=== PATIENT | female | born 1990 | race Caucasian/White ===

== ENCOUNTER 2016-12-14 18:40 | Inpatient (IN) | payer OTHER ==
[~2016-12-14] VITALS: Ht 160 cm; Wt 79.4 kg
[2016-12-14] MEDS: LACTATED RINGER'S 1000 ML IV SCH (19:20)
[2016-12-14 19:52] LABS: AUTOMATED NEUTROPHIL # 5.6 TH/MM3 (1.8-7.7); BASOPHIL % 0.2 % (0.0-2.0); EOSINOPHIL % 0.4 % (0.0-4.0); HEMATOCRIT 40.8 % (35.0-46.0); HEMO FLAGS DIFF FINAL; LYMPH % 19.9 % (9.0-44.0); LYMPHOCYTE # 1.5 TH/MM3 (1.0-4.8); MEAN CELL VOLUME 88.5 FL (80.0-100.0); MEAN CORPUSCULAR HEMOGLOBIN 31.2 PG (27.0-34.0); MEAN CORPUSCULAR HGB CONC 35.3 % (32.0-36.0); MONO % 6.5 % (0.0-8.0); PLATELET COUNT 209 TH/MM3 (150-450); RED BLOOD COUNT 4.61 MIL/MM3 (4.00-5.30); RED CELL DISTRIBUTION WIDTH 13.1 % (11.6-17.2); WHITE BLOOD COUNT 7.7 TH/MM3 (4.0-11.0)
[2016-12-14] MEDS ORDERED: DINOPROSTONE 10 MG INSERT-LEAVE FOR 12 HOURS VAGINAL ONE (20:00)
[2016-12-14 20:14] VITALS: RESP 18
[2016-12-14] MEDS ORDERED: OXYTOCIN 30 UNITS 500ML PREMIX IV ONE (20:15)
[2016-12-14] MEDS ORDERED: LIDOCAINE HCL 1% 50 ML VIAL INFIL PRN (20:15)
[2016-12-14] MEDS ORDERED: MINERAL OIL 10 ML VIAL TOP PRN (20:15)
[2016-12-14 20:24] LABS: BACTERIA, URINE RARE /hpf; BLOOD, URINE NEG (NEG); COMMENT (UR) CULT NOT INDICATED; CULTURE IF INDICATED CULT NOT INDICATED; GLUCOSE,URINE 300 mg/dL (NEG); KETONE, URINE NEG (NEG); MUCUS URINE FEW /lpf (OCC); NITRITE,URINE NEG (NEG); PH, URINE 6.5 (5.0-8.5); SQUAMOUS EPITHELIAL CELL URINE <1 /hpf (0-5); URINE COLOR LIGHT-YELLOW (YELLW/STRAW)
[2016-12-14] MEDS ORDERED: NS 500 ML BOLUS IV PRN (20:30)
[2016-12-14] MEDS ORDERED: LIDOCAINE HCL 1% 50 ML VIAL I-DERMAL PRN (20:30)
[2016-12-14] MEDS ORDERED: CITRIC ACID-SODIUM CITRATE LIQ 30 ML UDC PO SCH (20:30)
[2016-12-14] MEDS ORDERED: NS 1000 ML IV PRN (20:30)
[2016-12-14] MEDS ORDERED: LACTATED RINGER'S 1000 ML BOLUS IV PRN (20:30)
[2016-12-14] MEDS ORDERED: PREN1CAP28 PO (20:54)
[2016-12-14] MEDS ORDERED: ZOLPIDEM TARTRATE 10 MG TAB PO PRN (21:00)
[2016-12-14 21:06] VITALS: RESP 18
[2016-12-14 22:13] VITALS: BP 135/70; PULSE 75
[2016-12-14 22:15] VITALS: RESP 18; TEMP 98
[2016-12-14 23:15] VITALS: RESP 20
[2016-12-14 23:45] VITALS: RESP 18
[2016-12-15] VITALS (34 sets, daily range): BP systolic 98–124; BP diastolic 45–74; PULSE 66–91; RESP 16–20; TEMP 97.8–98.1
[2016-12-15] MEDS: LACTATED RINGER'S 1000 ML IV SCH ×3 (04:30→12:47)
[2016-12-15] MEDS: ONDANSETRON HCL 4 MG/2 ML VIAL IV PRN (05:30)
[2016-12-15] MEDS ORDERED: OXYTOCIN 30 UNITS-500ML PREMIX 500 ML IV SCH (07:00)
--- NOTE | 2016-12-15 10:06 | MH ---
cc: NICOLE ALTMAN MD DATE OF ADMISSION: 12/14/2016 HISTORY OF PRESENT ILLNESS She is [id number], 1, para 0, intrauterine at 39 weeks and 3 days. care has been with [facility]. She was a late transfer at 33 weeks, uneventful. Group-B strep negative. She is being induced because her is in the and has to return in December. PAST OB HISTORY She is 1. PAST [employer] [employer] HISTORY She has had breast augmentation surgery in 2013. History of an abnormal Pap smear. ASCUS was negative HPV on her Pap smear in September 2015. PAST MEDICAL HISTORY She denies hypertension, diabetes or asthma. PAST SURGICAL HISTORY Significant for the breast augmentation. SOCIAL HISTORY She denies toxic habits. MEDICATIONS She takes vitamins. ALLERGIES Has no known drug allergies. PHYSICAL EXAMINATION VITAL SIGNS: Stable. She is afebrile. Blood pressure is 124/62. She is 164 pounds. HEAD, HEART, CHEST AND LUNGS: Within normal limits. ABDOMEN: Soft, nontender, gravid. : On vaginal exam cervix is closed, soft, midposition. ASSESSMENT AND PLAN She is [id number], 1, para 0, intrauterine at 39 and 3/7 weeks, for admission and Cervidil cervical ripening. Group-B strep negative. The patient was counseled about induction. Her is in the and has to return to work in December. MD JENNIFER Telles/DAYSI /3:23 PM /10:06 AM
[2016-12-15] MEDS ORDERED: DINOPROSTONE 10 MG VAG INSERT VAGINAL ONE (18:00)
[2016-12-16] VITALS (50 sets, daily range): BP systolic 88–131; BP diastolic 48–92; PULSE 66–93; RESP 16–22; TEMP 97–98.6; O2SAT 98–100
--- NOTE | 2016-12-16 08:50 | PD.LABORPN ---
Subjective Subjective s/p cervidil x2 Objective Vital Signs Vital Signs Date Time Temp Pulse Resp B/P Pulse Ox O2 Delivery O2 Flow Rate FiO2 12/16/16 05:17 83 120/63 12/16/16 05:16 16 12/16/16 05:16 98.0 12/16/16 01:16 77 109/49 12/16/16 01:00 16 12/16/16 01:00 98.2 Objective Pelvic Exam: Cervix: [-] Dilatation: [-] 2 Effacement: [-] 50 Station: [-] -2 Presentation: [-] vtx Membranes: [intact or ruptured] arom clear Uterine Contractions: [-] occas FHT's: Category: [-] 1 Baseline: [-] Reactive: [-] R Variability: [-] Decels: [-] Assessment/Plan Problem List: (1) state, incidental Assessment and Plan IUP at term s/p cervidil- pit- cervidil, AROM clear restart pit, analgesia prn, anticipate Nena Bustos MD Dec 16, 2016 08:50
[2016-12-16] MEDS ORDERED: OXYTOCIN 30 UNITS-500ML PREMIX 500 ML ONE ×2 (08:51→22:15)
[2016-12-16] MEDS ORDERED: OXYTOCIN 30 UNITS-500ML PREMIX 500 ML IV SCH (09:00)
[2016-12-16] MEDS: ONDANSETRON HCL 4 MG/2 ML VIAL IV PRN (11:37)
[2016-12-16] MEDS ORDERED: fentaNYL 2MCG-BUPIV 0.125% INJ 100 ML ONE (16:20)
[2016-12-16] MEDS ORDERED: ePHEDrine/NS 25 MG/5 ML SYR ONE (16:21)
[2016-12-16] MEDS ORDERED: NO SYSTEM NARCOTICS XX PRN (17:45)
[2016-12-16] MEDS ORDERED: ePHEDrine/NS 25 MG/5 ML SYR IV PRN (17:45)
[2016-12-16] MEDS ORDERED: fentaNYL 2MCG-BUPIV 0.125% 100 ML EPIDURAL SCH (17:45)
[2016-12-16] MEDS ORDERED: DO NOT ADMINISTER ANTICOAGULANTS XX PRN (17:45)
[2016-12-16] MEDS ORDERED: ceFAZolin INJ 1,000 MG VIAL ONE ×2 (20:13→20:35)
[2016-12-16] MEDS ORDERED: OXYTOCIN 10 UNIT/ML AMP ONE (20:14)
[2016-12-16] MEDS ORDERED: DICLOFENAC SODIUM 37.5 MG/ML VIAL IV PUSH ONE (20:35)
[2016-12-16] MEDS ORDERED: ACETAMINOPHEN 1000 MG/100 ML VIAL IV ONE (21:15)
[2016-12-16] MEDS ORDERED: OXYTOCIN 30 UNITS-500ML PREMIX 500 ML IV ONE (21:15)
[2016-12-16] MEDS ORDERED: ONDANSETRON HCL 4 MG/2 ML VIAL IV PUSH PRN (21:15)
[2016-12-16] MEDS ORDERED: SODIUM CHLORIDE 0.9% FLUSH 10 ML FLUSH IV FLUSH PRN (21:15)
[2016-12-16] MEDS ORDERED: ZOLPIDEM TARTRATE 5 MG TAB PO PRN (21:15)
[2016-12-16] MEDS ORDERED: ACETAMINOPHEN 325 MG TAB PO PRN (21:15)
[2016-12-16] MEDS ORDERED: SIMETHICONE 80 MG CHEWABLE TAB PO PRN (21:15)
[2016-12-16] MEDS ORDERED: ONDANSETRON HCL 4 MG/2 ML VIAL ONE (21:25)
[2016-12-16] MEDS ORDERED: MORPHINE SULFATE PF 5 MG/10 ML VIAL ONE (21:25)
[2016-12-16] MEDS ORDERED: LIDOCAINE HCL 2% 20 ML VIAL NB ONE (22:01)
[2016-12-16] MEDS ORDERED: SODIUM BICARBONATE 8.4% INJ 50 MEQ/50 ML SYR IV ONE (22:01)
[2016-12-16] MEDS ORDERED: LACTATED RINGER'S 1000 ML INJ 1,000 ML IV ONE (22:01)
[2016-12-16] MEDS ORDERED: SODIUM CHLORIDE 0.9% FLUSH 5 ML FLUSH ONE (22:41)
[2016-12-16] MEDS ORDERED: DEXAMETHASONE SOD PHOS 4 MG/ML VIAL IV ONE (23:00)
[2016-12-16] MEDS ORDERED: EPIDURAL-NALOXONE HCL 0.4 MG/ML AMP IV PRN (23:45)
[2016-12-16] MEDS ORDERED: EPIDURAL-NO SYSTEMIC NARCOTICS XX PRN (23:45)
[2016-12-16] MEDS ORDERED: EPIDURAL-DIPHENHYDRAMINE HCL 50 MG/ML VIAL IV PUSH PRN (23:45)
[2016-12-16] MEDS ORDERED: EPIDURAL-DIPHENHYDRAMINE HCL 50 MG CAP PO PRN (23:45)
[2016-12-16] MEDS ORDERED: EPIDURAL-DO NOT ADMINISTER ANTICOAGULANTS XX PRN (23:45)
[2016-12-17 00:20] VITALS: BP 98/51; PULSE 74; RESP 18; RESP 22; TEMP 97.8
[2016-12-17] MEDS ORDERED: LACTATED RINGER'S 1000 ML INJ 1,000 ML IV SCH (02:14)
[2016-12-17 04:11] VITALS: BP 108/62; PULSE 70; RESP 16; TEMP 98.4
[2016-12-17 05:47] LABS: AUTOMATED NEUTROPHIL # 15.6 TH/MM3 (1.8-7.7); BASOPHIL % 0.1 % (0.0-2.0); HEMATOCRIT 34.2 % (35.0-46.0); HEMO FLAGS DIFF FINAL; LYMPH % 3.8 % (9.0-44.0); LYMPHOCYTE # 0.6 TH/MM3 (1.0-4.8); MEAN CELL VOLUME 88.9 FL (80.0-100.0); MEAN CORPUSCULAR HEMOGLOBIN 30.6 PG (27.0-34.0); MEAN CORPUSCULAR HGB CONC 34.4 % (32.0-36.0); MONO % 3.2 % (0.0-8.0); NEUT % 92.9 % (16.0-70.0); PLATELET COUNT 172 TH/MM3 (150-450); RED BLOOD COUNT 3.85 MIL/MM3 (4.00-5.30); RED CELL DISTRIBUTION WIDTH 13.8 % (11.6-17.2); WHITE BLOOD COUNT 16.8 TH/MM3 (4.0-11.0)
[2016-12-17] MEDS ORDERED: OXYTOCIN 30 UNITS-500ML PREMIX 500 ML IV PRN (07:15)
[2016-12-17 07:50] VITALS: BP 104/68; PULSE 72
[2016-12-17] MEDS ORDERED: SODIUM CHLORIDE 0.9% FLUSH 10 ML FLUSH IV FLUSH SCH (09:00)
--- NOTE | 2016-12-17 09:01 | HHI.OB ---
Subjective Post Operative Day: 1 Remarks doing well 10 hours post section for failure of descent\ Aldo well no complaints Objective Vitals/I&O Vital Signs Date Time Temp Pulse Resp B/P Pulse Ox O2 Delivery O2 Flow Rate FiO2 12/17/16 07:50 72 104/68 12/17/16 04:11 70 108/62 12/17/16 04:11 98.4 16 12/17/16 00:20 18 12/17/16 00:20 97.8 74 22 98/51 12/16/16 22:50 71 16 112/72 98 12/16/16 22:50 98.6 12/16/16 22:30 74 16 110/48 99 12/16/16 22:20 69 16 112/68 99 12/16/16 22:04 104/57 12/16/16 22:04 67 16 99 12/16/16 21:49 70 16 109/66 100 12/16/16 21:35 75 18 110/65 99 12/16/16 21:20 98.2 12/16/16 21:20 80 22 108/70 99 12/16/16 20:00 71 102/56 12/16/16 19:43 98.5 18 12/16/16 19:30 78 122/68 12/16/16 19:00 79 128/82 12/16/16 18:30 82 115/66 12/16/16 18:15 17 12/16/16 18:15 82 12/16/16 18:10 82 12/16/16 18:05 70 12/16/16 18:00 68 106/64 12/16/16 18:00 77 12/16/16 17:55 68 12/16/16 17:50 73 12/16/16 17:45 71 12/16/16 17:42 17 12/16/16 17:40 68 12/16/16 17:35 74 12/16/16 17:30 70 12/16/16 17:30 76 111/64 12/16/16 17:25 79 125/67 12/16/16 17:25 74 12/16/16 17:20 71 12/16/16 17:20 76 111/62 12/16/16 17:15 74 113/66 12/16/16 17:15 77 12/16/16 17:10 73 12/16/16 17:10 74 113/67 12/16/16 17:05 74 111/68 12/16/16 17:05 76 12/16/16 17:00 98.4 18 12/16/16 17:00 80 106/56 12/16/16 17:00 82 12/16/16 16:57 90 109/57 12/16/16 16:56 91 88/74 12/16/16 16:55 85 12/16/16 16:51 93 131/92 12/16/16 16:50 80 12/16/16 16:45 80 12/16/16 15:30 74 114/72 12/16/16 15:15 17 12/16/16 15:00 72 115/60 12/16/16 14:45 98.4 12/16/16 14:41 75 117/73 12/16/16 14:41 16 12/16/16 12:45 97.0 12/16/16 12:42 66 118/69 12/16/16 11:45 18 12/16/16 11:36 81 128/74 12/16/16 09:46 75 108/63 Result Diagram: 12/17/16 0518 Objective Remarks GENERAL: Well-nourished, well-developed patient. CARDIOVASCULAR: Regular rate and rhythm without murmurs, gallops, or rubs. RESPIRATORY: Breath sounds equal bilaterally. No accessory muscle use. ABDOMEN/GI: Abdomen soft, non-tender, bowel sounds present. Incision: Clean, dry and intact. Fundus: Firm, non-tender at umbilicus. GENITOURINARY: Light to moderate bleeding. EXTREMITIES: No cyanosis or edema, non-tender, without signs of DVT. Medications and IVs Current Medications Medications (Trade) Dose Ordered Sig/Denis Route Start Time Stop Time Status Last Admin (Lr 1000 ml Inj) 1,000 ml @ 100 mls/hr Q10H IV 12/17/16 02:14 12/17/16 22:13 (NS Flush) 2 ml BID IV FLUSH 12/17/16 09:00 (NS Flush) 2 ml UNSCH PRN IV FLUSH 12/16/16 21:15 (Mylicon Chew) 80 mg QID PRN PO 12/16/16 21:15 (Tylenol) 650 mg Q6H PRN PO 12/16/16 21:15 (Motrin) 600 mg Q6H PRN PO 12/16/16 21:15 (Percocet 5-325 Mg) 1 tab Q4H PRN PO 12/16/16 21:15 (Percocet 5-325 Mg) 2 tab Q4H PRN PO 12/16/16 21:15 (Michelle-Colace) 2 tab Q12H PRN PO 12/16/16 21:15 (Ambien) 5 mg HS PRN PO 12/16/16 21:15 (M-M-R Ii Inj) 0.5 ml ONCE ONCE SQ 12/17/16 16:00 12/17/16 16:01 (Boostrix Inj) 0.5 ml ONCE ONCE IM 12/17/16 16:00 12/17/16 16:01 (Zofran Inj) 4 mg Q6H PRN IV PUSH 12/16/16 21:15 Miscellaneous Information NO SYSTEMIC NARCOTICS TO BE GIVEN FO... UNSCH PRN XX 12/16/16 23:45 12/17/16 23:44 (Narcan Inj) 0.4 mg UNSCH PRN IV 12/16/16 23:45 12/17/16 23:44 (Benadryl Inj) 25 mg Q6H PRN IV PUSH 12/16/16 23:45 12/17/16 23:44 (Benadryl) 50 mg Q6H PRN PO 12/16/16 23:45 12/17/16 23:44 Miscellaneous Information ALL NURSING DEPARTMENTS UNSCH PRN XX 12/16/16 23:45 12/17/16 23:44 Assessment/Plan Problem List: (1) state, incidental Assessment and Plan doing well on POD 1 baby for circumcision in am no issues at this time Tessa Ríos MD Dec 17, 2016 09:01
[2016-12-17] MEDS: DOCUSATE SODIUM 50 MG/SENNA 8.6 MG TAB PO PRN ×2 (09:04→23:00)
[2016-12-17] MEDS: IBUPROFEN 600 MG TAB PO PRN ×3 (09:04→21:15)
[2016-12-17] MEDS: oxyCODONE/ACETAMINOPHEN 5 MG/325 MG TAB PO PRN ×3 (09:05→21:14)
[2016-12-17 15:53] VITALS: BP 106/68; PULSE 18; RESP 18; TEMP 98.7
[2016-12-17] MEDS ORDERED: DIPHTH/TETANUS/ACEL PERTUSSIS (BOOSTER) 0.5 ML VIAL/PFS IM ONE (16:00)
[2016-12-17] MEDS ORDERED: MEASLES, MUMPS, RUBELLA VACCINE 0.5 ML VIAL SQ ONE (16:00)
[2016-12-17 21:00] VITALS: BP 116/69; PULSE 79; RESP 18; TEMP 98.6
[2016-12-18] MEDS: IBUPROFEN 600 MG TAB PO PRN ×2 (05:06→11:47)
[2016-12-18 08:00] VITALS: BP 106/78; PULSE 80; RESP 1; TEMP 98.4
[2016-12-18] MEDS: DOCUSATE SODIUM 50 MG/SENNA 8.6 MG TAB PO PRN (09:16)
[2016-12-18] MEDS: oxyCODONE/ACETAMINOPHEN 5 MG/325 MG TAB PO PRN (09:18)
--- NOTE | 2016-12-18 10:36 | HHI.OB ---
Subjective Post Operative Day: 2 Remarks Doing well has great support at home and would like discharge no complaints Objective Vitals/I&O Vital Signs Date Time Temp Pulse Resp B/P Pulse Ox O2 Delivery O2 Flow Rate FiO2 12/18/16 08:00 80 106/78 12/18/16 08:00 98.4 1 12/17/16 21:00 79 18 116/69 12/17/16 21:00 98.6 12/17/16 15:53 106/68 12/17/16 15:53 98.7 18 18 Result Diagram: 12/17/1618 Objective Remarks GENERAL: Well-nourished, well-developed patient. CARDIOVASCULAR: Regular rate and rhythm without murmurs, gallops, or rubs. RESPIRATORY: Breath sounds equal bilaterally. No accessory muscle use. ABDOMEN/GI: Abdomen soft, non-tender, bowel sounds present. Incision: Clean, dry and intact. aristides in place Fundus: Firm, non-tender at umbilicus. GENITOURINARY: Light to moderate bleeding. EXTREMITIES: No cyanosis or edema, non-tender, without signs of DVT. Medications and IVs Current Medications Medications (Trade) Dose Ordered Sig/Denis Route Start Time Stop Time Status Last Admin (NS Flush) 2 ml BID IV FLUSH 12/17/16 09:00 (NS Flush) 2 ml UNSCH PRN IV FLUSH 12/16/16 21:15 (Mylicon Chew) 80 mg QID PRN PO 12/16/16 21:15 (Tylenol) 650 mg Q6H PRN PO 12/16/16 21:15 (Motrin) 600 mg Q6H PRN PO 12/16/16 21:15 12/18/16 05:06 (Percocet 5-325 Mg) 1 tab Q4H PRN PO 12/16/16 21:15 12/17/16 21:14 (Percocet 5-325 Mg) 2 tab Q4H PRN PO 12/16/16 21:15 12/18/16 09:18 (Michelle-Colace) 2 tab Q12H PRN PO 12/16/16 21:15 12/18/16 09:16 (Ambien) 5 mg HS PRN PO 12/16/16 21:15 (Zofran Inj) 4 mg Q6H PRN IV PUSH 12/16/16 21:15 Assessment/Plan Problem List: (1) state, incidental Assessment and Plan doing well wants circ in office wants to go home today with aristides return to office tuesday for both Tessa Ríos MD Dec 18, 2016 10:36
[2016-12-18] MEDS ORDERED: OXYC1TAB63 PO (10:38)
--- NOTE | 2016-12-18 10:38 | HHI.DCPOC ---
Discharge Care Plan Report Symptoms to Your Doctor -Temperate above 100.5 degrees -Redness, of incision or excessive or foul smelling drainage -Unusual pain or calf pain -Increased vaginal bleeding -Painful or difficulty urinating -Feelings of extreme sadness or anxiety after 2 weeks Goals to Promote Your Health * To prevent worsening of your condition and complications * To maintain your health at the optimal level Directions to Meet Your Goals Take your medications as prescribed Follow your dietary instruction Follow activity as directed Ensure plenty of rest for recovery Drink fluids for hydration Keep your appointments as scheduled Take your immunizations and boosters as scheduled If your symptoms worsen call your PCP, if no PCP go to Urgent Care Center or Emergency Room Smoking is Dangerous to Your Health. Avoid second hand smoke Call the 24-hour crisis hotline for domestic abuse at Tessa Ríos MD Dec 18, 2016 10:38
--- NOTE | 2016-12-20 12:54 | MP ---
cc: NICOLE BUSTOS DATE OF SURGERY: 12/16/2016 PREOPERATIVE DIAGNOSIS Intrauterine at term, arrest of dilatation. POSTOPERATIVE DIAGNOSIS Intrauterine at term, arrest of dilatation. PROCEDURE Primary lower segment transverse section via Pfannenstiel skin incision. SURGEON Dr. Bustos ANESTHESIA Spinal. FLUIDS 1500 cc crystalloid. ESTIMATED BLOOD LOSS 500 cc. URINE OUTPUT 250 cc clear yellow at the end of the procedure. FINDINGS A live male was delivered vertex presentation, Apgars 9 at one minute, 9 at five minutes. weight 8 pounds 5 ounces. DETAILS OF PROCEDURE The patient was taken to the operating room where epidural anesthesia was found to be adequate. She was then prepped and draped in the normal sterile fashion in the dorsal supine position with a leftward tilt. A Pfannenstiel skin incision was made with a scalpel and carried down to the underlying layer of fascia. The fascia was nicked in the midline and the incision was extended laterally with curved Varner scissors. Attention was turned to the inferior aspect of the incision which was grasped with Kyung clamps, elevated and the rectus muscles dissected off sharply. Attention was turned to the superior aspect of the incision which was grasped with Kyung clamps, elevated and the rectus muscles dissected off sharply. The rectus muscles were in the midline. The peritoneum was identified, grasped with [place] clamps, elevated and entered sharply with Metzenbaum scissors. This incision was extended superiorly and inferiorly with good visualization of the bladder. A bladder blade was inserted. The vesicouterine peritoneum was grasped with pickups and entered sharply with Metzenbaum scissors. This incision was extended laterally and the bladder flap created digitally. The lower uterine segment was incised in a transverse fashion with a scalpel. The incision was extended laterally with bandage scissors. The vertex was then delivered. The oral and nasopharynx were bulb suctioned with a syringe. The shoulders were delivered atraumatically. The cord was clamped x2 and cut. The was handed off to the awaiting nurse. The placenta was delivered manually. The uterus was cleared of all clots and debris. The uterine incision was repaired in two layers with #1 Vicryl. Hemostasis was assured. The gutters were cleared of all clots and debris. The fascia was closed in a running fashion with 0 Vicryl. The skin was closed with aristides. A pressure dressing was applied. The sponge, lap, needle and instrument counts were correct x3. The patient was transferred to the recovery room in stable condition. MD JENNIFER Telles/DAYSI /9:19 PM /12:51 PM
== END 2016-12-18 14:46 | disposition home or self-care (01) | DRG 766 ==
LOC: H2EB 18:40 → H1EA 12-16 23:26
PROVIDERS: ADMIT Obstetrics & Gynecology; ATTEND Obstetrics & Gynecology
PROC: 10D00Z1 Extraction of Products of Conception, Low, Open Approach (ICD-10-PCS; principal; 2016-12-16)
PROC: 3E0P7GC Introduction of Other Therapeutic Substance into Female Reproductive, Via Natural or Artificial Opening (ICD-10-PCS; 2016-12-16)
PROC: 10907ZC Drainage of Amniotic Fluid, Therapeutic from Products of Conception, Via Natural or Artificial Opening (ICD-10-PCS; 2016-12-16)
PROC: 00HU33Z Insertion of Infusion Device into Spinal Canal, Percutaneous Approach (ICD-10-PCS; 2016-12-16)
PROC: 3E0R3CZ (ICD-10-PCS; 2016-12-16)
DX: O62.0 Primary inadequate contractions (principal); Z37.0 Single live birth; Z3A.39 39 weeks gestation of pregnancy
CPT/HCPCS: 59025; 81001; 85025; 86900; 86901; J0690; J1130; J2274; J2405; J2590; J3010; J7120